=== PATIENT | female | born 1960 | race Caucasian/White ===

== ENCOUNTER 2018-10-26 11:23 | Day surgery (SDC) | payer BC ==
[~2018-10-26 11:23] MED LIST: Lactated Ringers 1,000 ML IV SCH; Midazolam 1 MG/ML 2 ML SDV ONE; Propofol 200 MG/20 ML SDV ONE; Sodium Chloride 0.9% 10 ML Syringe FLUSH PRN; fentaNYL 100 MCG/2 ML SDV ONE
[2018-10-26] MEDS ORDERED: Midazolam 1 MG/ML 2 ML SDV ONE (13:32)
[2018-10-26] MEDS ORDERED: Lidocaine 2% 5 ML SDV ONE (13:32)
[2018-10-26] MEDS ORDERED: fentaNYL 100 MCG/2 ML SDV ONE (13:32)
[2018-10-26] MEDS ORDERED: Propofol 200 MG/20 ML SDV ONE (13:32)
--- NOTE | 2018-10-26 13:39 | PCM.PN ---
- General Info Date of Service: 10/26/18 - Review of Systems Systems Review Comment:: 58-year-old female referred today for EGD and colonoscopy. She has a history of previous cholecystectomy but has intermittent right upper quadrant abdominal pain. She also has a known history of colon polyps. She is medically stable to proceed today.Her recent history and physical is reviewed and no significant changes are noted. I discussed the proposed EGD and colonoscopy with the patient. She understands risks and agrees to proceed. - Patient Data Vitals - Most Recent: Last Vital Signs Temp 98.8 F 10/26/18 12:10 Pulse 96 10/26/18 12:10 Resp 20 10/26/18 12:10 BP 132/70 10/26/18 12:10 Pulse Ox 98 10/26/18 12:10 Weight - Most Recent: 98.883 kg Med Orders - Current: Current Medications Lactated Ringer's (Ringers, Lactated) 1,000 mls @ 125 mls/hr IV ASDIRECTED LEXX Sodium Chloride (Saline Flush) 10 ml FLUSH ASDIRECTED PRN PRN Reason: Keep Vein Open Discontinued Medications Fentanyl (Sublimaze) Confirm Administered Dose 100 mcg .ROUTE .STK-MED ONE Stop: 10/26/18 08:18 Midazolam HCl (Versed 1 Mg/Ml) Confirm Administered Dose 2 mg .ROUTE .STK-MED ONE Stop: 10/26/18 08:18 Propofol (Diprivan 20 Ml) Confirm Administered Dose 400 mg .ROUTE .STK-MED ONE Stop: 10/26/18 08:19 - Problem List Review Problem List Initiated/Reviewed/Updated: Yes - Assessment Assessment:: upper abdominal pain History of colon polyps - Plan Plan:: EGD and colonoscopy
--- NOTE | 2018-10-26 14:26 | PCM.OPNOTE ---
- General Post-Op/Procedure Note Date of Surgery/Procedure: 10/26/18 Operative Procedure(s): EGD with Biopsy. Colonoscopy Findings: Mild Reflux Esophagitis at GE Jct Upper Endoscopy otherwise normal Colon Normal Pre Op Diagnosis: Upper Abdominal Pain. History of Colon Polyps Post-Op Diagnosis: Reflux Esophagitis. Normal Colon Anesthesia Technique: MAC Primary Surgeon: Olivier Shaw Pathology: Biopsies of Gastric Antrum and GE Jct Output, Urine Amount: 0 EBL in mLs: 3 Complications: None Condition: Good
[2018-10-26 15:12] VITALS: BP 136/84
--- NOTE | 2018-10-27 10:24 | OR ---
Date of Procedure: 10/26/2018 PREOPERATIVE DIAGNOSIS: Upper abdominal pain and history of colon polyps. POSTOPERATIVE DIAGNOSIS: Reflux esophagitis and normal colon. OPERATION PERFORMED: Esophagogastroduodenoscopy with biopsy and colonoscopy. INDICATIONS FOR SURGERY: This 58-year-old female has been having symptoms of right upper quadrant abdominal pain. She also has a known history of colon polyps. She comes today for EGD and colonoscopy. FINDINGS: On upper endoscopy, the patient has a mild degree of irritation at the GE junction, 34 cm from the incisors. The inflammation is mild without exudate or ulceration. The remainder of the patient's stomach and duodenum appeared normal. The patient's colon appeared normal on colonoscopy. DESCRIPTION OF PROCEDURE: The patient was taken to the operating room. She was given intravenous sedation, and her throat was topically anesthetized. The esophagus was intubated with the Olympus gastroscope, it was carefully advanced under direct visualization through the esophagus, stomach, and into the duodenum, where examination to the third portion was performed. After examining the duodenum, the scope was withdrawn into the stomach and full examination including retroflexed examination of the fundus was performed. Biopsies of the antrum were taken to rule out H. pylori. The GE junction was carefully examined and biopsies of this area were also taken to evaluate the patient's symptoms. The esophagus was re-examined as the scope was withdrawn, and the scope was removed. Attention was turned to colonoscopy. Digital rectal exam was performed showing no rectal masses. The Olympus colonoscope was inserted into the rectum. Retroflexed examination of the rectal canal was performed. The scope was then carefully advanced under direct visualization through the entire length of the colon until the cecum was reached. Cecal acquisition was confirmed by noting the normal internal cecal anatomy including the appendiceal orifice and ileocecal valve. The light was also noted to transilluminate the abdominal wall in the right lower quadrant. After examining the cecum, the scope was slowly withdrawn sequentially re-examining the colonic segments until the entire colon and rectum had been fully examined. The scope was removed and the patient was taken from the operating room in satisfactory condition. ESTIMATED BLOOD LOSS: 3 mL. COMPLICATIONS: None. PROGNOSIS: Good. VIKTOR Shaw MD /[id number]
== END 2018-10-26 15:46 | disposition home or self-care (01) ==
LOC: LL.SDS 11:23
PROVIDERS: ATTEND Surgery
DX: R10.11 Right upper quadrant pain (principal); K31.89 Other diseases of stomach and duodenum; K20.9 Esophagitis, unspecified; I51.89 Other ill-defined heart diseases; F32.9 Major depressive disorder, single episode, unspecified; I10 Essential (primary) hypertension; E03.9 Hypothyroidism, unspecified; Z86.010 Personal history of colon polyps; Z88.8 Allergy status to other drugs, medicaments and biological substances; Z79.899 Other long term (current) drug therapy; Z87.891 Personal history of nicotine dependence
CPT/HCPCS: 43239; 45378; J2250; J2704; J3010; J7120